=== PATIENT | female | born 1975 | race African-American/Black ===

== ENCOUNTER 2016-07-20 11:06 | Observation (INO) | payer BC ==
--- NOTE | 2016-07-20 12:24 | PDOC ---
History of Present Illness - General Chief Complaint: Lightheaded Stated Complaint: DIZZINESS Time Seen by Provider: 07/20/16 12:05 History Source: Patient Exam Limitations: No Limitations - History of Present Illness Initial Comments: 07/20/16 12:19 41y F no known pmhx presents with 2 episodes of lightheadedness lasting for several seconds at a time. The pt states she was at work onthe computer when she suddenly felt lightheaded, it lasted for a few seconds, resolved and came back for another few seconds. The pt has been asypmtomatic since then. The pt did note some palpitations during the episode, but thinks it might be because she got anxious she was feeling this way. The pt denies any cp, sob, n/v, vision changes, numbness/tingling/weakness, dysuria, frequency, diarrhea, melena , bpr. The pt states she has had this before and went to the ED in [place] and was told she had a 'vitamine deficiency'. The pt is recently from [place] and does not have a PMD in [place]. LMP last week that was normal and not particularly heavy Past History - Past Medical History Allergies/Adverse Reactions: Allergies Allergy/AdvReac Type Severity Reaction Status Date / Time No Known Allergies Allergy Verified 07/20/16 11:16 Home Medications: Ambulatory Orders NK [No Known Home Medication] 07/20/16 Other medical history: denies - Psycho/Social/Smoking Cessation Hx Suicidal Ideation: No Smoking History: Never smoked Information on smoking cessation initiated: No Hx Alcohol Use: No Drug/Substance Use Hx: No Substance Use Type: None Review of Systems - Review of Systems Able to Perform ROS?: Yes Comments:: 07/20/16 12:22 Constitutional - no reported Fever, Chills, weakness, HEENT: no reported vision changes, sore throat Respiratory: no reported cough, sob, hemoptysis Cardiac: +light headedness, no reported chest pain, palpitations, leg swelling Abd/GI: no reported abd pain, nausea, vomiting, blood per rectum, melena, diarrhea : no reported dysuria, frequency, discharge Musculskelatal - no reported back pain, joint swelling skin - no reported bruising, erythema, rash neurological: no reported headache, numbness, focal weakness, tingling, ataxia, weakness hematologic: no reported anemia, easy bruising, easy bleeding *Physical Exam - Vital Signs Last Vital Signs Temp Pulse Resp BP Pulse Ox 98.1 F 91 H 19 128/70 100 07/20/16 11:14 07/20/16 11:14 07/20/16 11:14 07/20/16 11:14 07/20/16 11:14 - Physical Exam Comments: 07/20/16 12:22 GENERAL: The patient is awake, alert, and fully oriented, Nontoxic - in no acute distress. HEAD: Normocephalic, atraumatic. EYES: extraocular movements intact, sclera anicteric, conjunctiva clear. ENT: Normal voice, Moist mucous membranes. NECK: Normal range of motion, supple LUNGS: Breath sounds equal, clear to auscultation bilaterally. No wheezes, no rhonchi, no rales. HEART: Regular rate and rhythm, normal S1 and S2 without murmur, rub or gallop. ABDOMEN: Soft, nontender, normoactive bowel sounds. No guarding, no rebound. . No CVA tenderness EXTREMITIES: Normal range of motion, no edema. No clubbing or cyanosis. No cords, erythema, or tenderness. NEUROLOGICAL: No facial assymetry, Normal speech, normal gait PSYCH: Normal mood, normal affect. SKIN: Warm, Dry, normal turgor, Heart Score/ECG Review - ECG Impressions Comment:: 07/20/16 17:10 Twelve-lead EKG was performed and reviewed by me. There is normal sinus rhythm with a normal rate. Rate of 91 The axis is normal. The intervals are normal. There is normal R wave progression There are no ST or T wave abnormalities. Impression: Normal twelve-lead EKG ED Treatment Course - LABORATORY CBC & Chemistry Diagram: 07/20/16 13:29 07/20/16 13:28 Medical Decision Making - Medical Decision Making 07/20/16 12:19 41y F presenting presenting with an episode of lightheadedness this morning while she was at work with no other complaints. The patient's exam is unremarkable. Her her vital signs are normal. We'll check basic blood work to rule out anemia, metabolic derangements, EKG to rule out arrhythmia, UA to rule out . The patient the patient is currently asymptomatic 07/20/16 17:09 pts blood work noted for anemia to 5.1 pt was written for 2u PRBC guaiac negative pt will be placed in observation for further evaluation of her anemia. case dw LOADER Oni agree with admission under Dr. Mcgarry service. Case discussed in detail with admitting physician including history, physical exam and ancillary studies. Admitting physician has assumed care for the patient, will follow all pending diagnostics and will complete the evaluation and treatment. *DC/Admit/Observation/Transfer Diagnosis at time of Disposition: Anemia Qualifiers: Anemia type: unspecified type Qualified Code(s): D64.9 - Anemia, unspecified - Discharge Dispostion Admit: Yes
[2016-07-20 13:42] LABS: EOSINOPHIL 0.3 % (0-4.5); MCHC 27.1 g/dl (32.0-36.0); MEAN PLT VOLUME 7.3 fl (7.5-11.1); NEUTROPHILS 63.1 % (42.8-82.8); PLATELET COUNT 554 K/MM3 (134-434); RDW 21.6 % (11.6-15.6); WHITE BLOOD COUNT 5.8 K/mm3 (4.0-10.0)
[2016-07-20 13:52] LABS: MCH 15.7 pg (25.7-33.7)
[2016-07-20 13:54] LABS: URINE APPEARANCE CLEAR; URINE BILIRUBIN NEGATIVE (NEGATIVE); URINE COLOR STRAW; URINE GLUCOSE (UA) NEGATIVE (NEGATIVE); URINE KETONE NEGATIVE (NEGATIVE); URINE NITRITE NEGATIVE (NEGATIVE); URINE PROTEIN NEGATIVE (NEGATIVE); URINE UROBILINOGEN NEGATIVE E.U./dl (0.2-1.0)
[2016-07-20 13:58] LABS: URINE BLOOD 2+ (NEGATIVE); URINE LEUK ESTERASE 1+ (NEGATIVE)
[2016-07-20 13:59] LABS: URINE MUCUS RARE; URINE RBC 11 /hpf (0-3); URINE WBC 14 /hpf (3-5)
[2016-07-20 14:16] LABS: ALBUMIN 3.4 g/dl (3.4-5.0); ALK PHOS 97 U/L (45-117); ANION GAP 8 (8-16); BILIRUBIN,TOTAL 0.3 mg/dL (0.2-1.0); CALCIUM 8.6 mg/dL (8.5-10.1); CO2 25 mmol/L (21-32); CREATININE 0.6 mg/dL (0.55-1.02); GLUCOSE,RANDOM 85 mg/dL (74-106); SGOT/AST 17 U/L (15-37); SGPT/ALT 18 U/L (12-78); TOT PROT 7.8 g/dl (6.4-8.2)
--- NOTE | 2016-07-20 14:17 | EKG ---
Test Reason : Blood Pressure : / mmHG Vent. Rate : 091 BPM Atrial Rate : 091 BPM P-R Int : 186 ms QRS Dur : 082 ms QT Int : 374 ms P-R-T Axes : 059 032 042 degrees QTc Int : 460 ms NORMAL SINUS RHYTHM NONSPECIFIC ST AND T WAVE ABNORMALITY NO PREVIOUS ECGS AVAILABLE Confirmed by CYNTHIA KILPATRICK MD ([id number]) on 07/20/2016 2:17:15 PM Referred By: Confirmed By:CYNTHIA KILPATRICK MD
--- NOTE | 2016-07-20 17:11 | PN ---
Teaching Attending Note Name of Resident: Kurt Gabriel ATTENDING PHYSICIAN STATEMENT I saw and evaluated the patient. I reviewed the resident's note and discussed the case with the resident. I agree with the resident's findings and plan as documented. Patient is c/o being light headed , shortness of breath on exertion. Vital Signs Temperature 98.1 F 07/20/16 11:14 Pulse Rate 91 H 07/20/16 11:14 Respiratory Rate 19 07/20/16 11:14 Blood Pressure 128/70 07/20/16 11:14 O2 Sat by Pulse Oximetry (%) 100 07/20/16 11:14 CBCD WBC 5.8 K/mm3 (4.0-10.0) 07/20/16 13:29 RBC 3.25 M/mm3 (3.60-5.2) L 07/20/16 13:29 Hgb 5.1 GM/dL (10.7-15.3) L* 07/20/16 13:29 Hct 18.9 % (32.4-45.2) L 07/20/16 13:29 MCV 58.0 fl (80-96) L 07/20/16 13:29 MCHC 27.1 g/dl (32.0-36.0) L 07/20/16 13:29 RDW 21.6 % (11.6-15.6) H 07/20/16 13:29 Plt Count 554 K/MM3 (134-434) H 07/20/16 13:29 MPV 7.3 fl (7.5-11.1) L 07/20/16 13:29 CMP Sodium 140 mmol/L (136-145) 07/20/16 13:28 Potassium 4.7 mmol/L (3.5-5.1) 07/20/16 13:28 Chloride 107 mmol/L (98-107) 07/20/16 13:28 Carbon Dioxide 25 mmol/L (21-32) 07/20/16 13:28 Anion Gap 8 (8-16) 07/20/16 13:28 BUN 10 mg/dL (7-18) 07/20/16 13:28 Creatinine 0.6 mg/dL (0.55-1.02) 07/20/16 13:28 Creat Clearance w eGFR > 60 (>60) 07/20/16 13:28 Random Glucose 85 mg/dL (74-106) 07/20/16 13:28 Calcium 8.6 mg/dL (8.5-10.1) 07/20/16 13:28 Total Bilirubin 0.3 mg/dL (0.2-1.0) 07/20/16 13:28 AST 17 U/L (15-37) 07/20/16 13:28 ALT 18 U/L (12-78) 07/20/16 13:28 Alkaline Phosphatase 97 U/L (45-117) 07/20/16 13:28 Total Protein 7.8 g/dl (6.4-8.2) 07/20/16 13:28 Albumin 3.4 g/dl (3.4-5.0) 07/20/16 13:28 Home Medications Medication Instructions Recorded NK [No Known Home Medication] 07/20/16 GENERAL: Awake, alert, and fully oriented, in no acute distress. HEENt:round and reactive to light, extraocular movements intact, sclera anicteric, +conjunctival pallor EARS, NOSE, THROAT: Moist mucous membranes. NECK: Normal range of motion, supple without JVD LUNGS: Breath sounds equal, clear to auscultation bilaterally. No wheezes, and no crackles. No accessory muscle use. HEART: Regular rate and rhythm, normal S1 and S2 positive , JEAN-PIERRE 3/6 ABDOMEN: Soft, nontender, not distended, normoactive bowel sounds, no guarding, no rebound RECTAL: per ED.negative hemo-occult MUSCULOSKELETAL: Normal range of motion at all joints. No CVA tenderness. EXTREMITIES: warm, well-perfused. No peripheral edema. NEUROLOGICAL: Cranial nerves II-XII intact. Normal speech. PSYCHIATRIC: Cooperative. Good eye contact. Appropriate mood and affect. SKIN: Warm, dry ASSESSMENT AND PLAN: Patient is a 41F presented to the hospital with lightheadedness and palpitations found to have anemia of Hb of 5.1 # Acute symptomatic Microcytic anemia with hem-occult negative , type and cross for 2 units and transfuse Iron panel studies , send B12 and folate levels, TSH level Hem consult ;GI evaluation as outpatient for possible endoscopy/colonoscopy [facility]ER evaluation as outpatient to establish care and evaluation of menses #Asymptomatic UTI no need for any treatment DVT Px :SCDs ,anticoag is contraindicated due to low hemoglobin
--- NOTE | 2016-07-20 17:31 | HP ---
CHIEF COMPLAINT: "I was lightheaded" PCP: none HISTORY OF PRESENT ILLNESS: 41F Denies PMHx presents to the ED form work for 2 episodes of lightheadedness lasting a few seconds at a time. The patient states she was at work sitting down when she started to get lightheaded and had palpitations. She states this lasted a few seconds and then she david fine a few minutes later she had another epiosde which was exactly the same and it also lasted a few seconds. This prompted her to come to the emergency room for evaluation. Upon arrival to the ED she was noted to have a Hb of 5.1. She states she has a history of anemia since she was a little kid. While she was about 20 years ago she had a blood transfusion where she received "2 pints". When she had that transfusion she said she was admitted to the hospital, transfused and discharged the same day with iron pills which she has not taken in many years. She has never been symptomatic until today. This morning she states she felt very tired but denies any decline in her exercise tolerance. She states She gets her menstrual cycles regularly and recently completed her cycle last week which was not very heavy. The patient is from [place] and recently was transferred here for work. 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 In [place] she states she was tole she has some kind of "vitamin deficiency". She currently denies any symptoms and feels fine. She denies nausea vomiting fevers chills chest pain or shortness of breath. she denies hematuria or dysuria. She denies GI bleeding or seeing blood in her stools. She has not established care with a primary care doctor here in [place]. ER course was notable for: (1)Labs (2)EKG (3)Transfusion Recent Travel:Denies PAST MEDICAL HISTORY:Anemia PAST SURGICAL HISTORY:Hernia repair at [age] years old Social History: Smoking:Denies Alcohol:Denies Drugs: Used to smoke marijuana and quit 8 years ago Family History:Father of a heart attack in his 60's mother is alive with a history of HTN and DM. Denies family history of cancer Allergies No Known Allergies Allergy (Verified 07/20/16 11:16) HOME MEDICATIONS: Home Medications Medication Instructions Recorded NK [No Known Home Medication] 07/20/16 REVIEW OF SYSTEMS CONSTITUTIONAL: Absent: fever, chills, diaphoresis, generalized weakness, malaise, loss of appetite, weight change HEENT: Absent: rhinorrhea, nasal congestion, throat pain, throat swelling, difficulty swallowing, mouth swelling, ear pain, eye pain, visual changes CARDIOVASCULAR: Absent: chest pain, syncope, irregular heart rate, peripheral edema Present: palpitations, lightheadedness, Tired for 1 day RESPIRATORY: Absent: cough, shortness of breath, dyspnea with exertion, orthopnea, wheezing, stridor, hemoptysis GASTROINTESTINAL: Absent: abdominal pain, abdominal distension, nausea, vomiting, diarrhea, constipation, melena, hematochezia GENITOURINARY: Absent: dysuria, frequency, urgency, hesitancy, hematuria, flank pain, genital pain MUSCULOSKELETAL: Absent: myalgia, arthralgia, joint swelling, back pain, neck pain SKIN: Absent: rash, itching, pallor HEMATOLOGIC/IMMUNOLOGIC: Absent: easy bleeding, easy bruising, lymphadenopathy, frequent infections ENDOCRINE: Absent: unexplained weight gain, unexplained weight loss, heat intolerance, cold intolerance NEUROLOGIC: Absent: headache, focal weakness or paresthesias, dizziness, unsteady gait, seizure, mental status changes, bladder or bowel incontinence PSYCHIATRIC: Absent: anxiety, depression, suicidal or homicidal ideation, hallucinations. PHYSICAL EXAMINATION Vital Signs - 24 hr 07/20/16 11:14 Temperature 98.1 F Pulse Rate 91 H Respiratory 19 Rate Blood Pressure 128/70 O2 Sat by Pulse 100 Oximetry (%) GENERAL: Awake, alert, and fully oriented, in no acute distress. HEAD: Normal with no signs of trauma. EYES: Pupils equal, round and reactive to light, extraocular movements intact, sclera anicteric, +conjunctival pallor EARS, NOSE, THROAT: Moist mucous membranes. NECK: Normal range of motion, supple without JVD LUNGS: Breath sounds equal, clear to auscultation bilaterally. No wheezes, and no crackles. No accessory muscle use. HEART: Regular rate and rhythm, normal S1 and S2 3/6 systolic murmur best heard at the left upper sternal border ABDOMEN: Soft, nontender, not distended, normoactive bowel sounds, no guarding, no rebound RECTAL: patient refused as Dr. Arriaga already did a rectal and there was yellow stool on his glove MUSCULOSKELETAL: Normal range of motion at all joints. No CVA tenderness. UPPER EXTREMITIES: warm, well-perfused. No peripheral edema. LOWER EXTREMITIES: warm, well-perfused. No calf tenderness. No peripheral edema. NEUROLOGICAL: Cranial nerves II-XII intact. Normal speech. PSYCHIATRIC: Cooperative. Good eye contact. Appropriate mood and affect. SKIN: Warm, dry Laboratory Results - last 24 hr 07/20/16 07/20/16 07/20/16 13:28 13:29 13:39 WBC 5.8 RBC 3.25 L Hgb 5.1 L* Hct 18.9 L MCV 58.0 L MCHC 27.1 L RDW 21.6 H Plt Count 554 H MPV 7.3 L Neutrophils % 63.1 Lymphocytes % 28.3 Monocytes % 7.3 Eosinophils % 0.3 Basophils % 1.0 Sodium 140 Potassium 4.7 Chloride 107 Carbon Dioxide 25 Anion Gap 8 BUN 10 Creatinine 0.6 Creat Clearance w eGFR > 60 Random Glucose 85 Calcium 8.6 Total Bilirubin 0.3 AST 17 ALT 18 Alkaline Phosphatase 97 Total Protein 7.8 Albumin 3.4 Urine Color Straw Urine Appearance Clear Urine pH 8.0 Ur Specific [place] 1.013 Urine Protein Negative Urine Glucose (UA) Negative Urine Ketones Negative Urine Blood 2+ H Urine Nitrite Negative Urine Bilirubin Negative Urine Urobilinogen Negative Ur Leukocyte Esterase 1+ H Urine RBC 11 Urine WBC 14 Ur Epithelial Cells Few Urine Mucus Rare Urine HCG, Qual Negative Stool Occult Blood Blood Type Antibody Screen Crossmatch 07/20/16 07/20/16 15:14 15:35 WBC RBC Hgb Hct MCV MCHC RDW Plt Count MPV Neutrophils % Lymphocytes % Monocytes % Eosinophils % Basophils % Sodium Potassium Chloride Carbon Dioxide Anion Gap BUN Creatinine Creat Clearance w eGFR Random Glucose Calcium Total Bilirubin AST ALT Alkaline Phosphatase Total Protein Albumin Urine Color Urine Appearance Urine pH Ur Specific [place] Urine Protein Urine Glucose (UA) Urine Ketones Urine Blood Urine Nitrite Urine Bilirubin Urine Urobilinogen Ur Leukocyte Esterase Urine RBC Urine WBC Ur Epithelial Cells Urine Mucus Urine HCG, Qual Stool Occult Blood Negative Blood Type AB POSITIVE Antibody Screen Negative Crossmatch See Detail EKG: NSR @ 91 ASSESSMENT/PLAN: 41F presented to the hospital with lightheadedness and palpitations found to have anemia with a Hb of 5.1 symptomatic Microcytic anemia:acute on chronic. stool for occult blood negative Place on observation type and cross 2 units PRBCs transfuse 2 units PRBCs Send Iron studies send B12 and folate levels TFTs Hematology consult-await recommendations for possible IV Iron vs Oral iron therapy Will need GI evaluation as outpatient for possible endoscopy [employer] evaluation as outpatient to establish care and evaluation of menses Systolic Murmur: Flow/innocent murmur likely from turbulent blood flow due to anemia observe Asymptomatic pyuria: 1+ LE and 14 WBCs asymptomatic does not need treatment at this time FEN: No IVF No electrolyte abnormalities regular diet PPx: SCDs/No chemical PPx as she is severely anemia and is an observation patient- early ambulation no GI PPx needed no PT consult needed Case discussed with Dr. Coleman Visit type - Emergency Visit Emergency Visit: Yes ED Registration Date: 07/20/16 Care time: The patient presented to the Emergency Department on the above date and was hospitalized for further evaluation of their emergent condition. - New Patient This patient is new to me today: Yes Date on this admission: 07/20/16 - Critical Care Critical Care patient: No
[2016-07-20 17:37] VITALS: BMI 29.8
[2016-07-20 18:50] LABS: ANISOCYTOSIS 3+; HYPOCHROMIA 3+; MICROCYTOSIS 3+; PLATELET ESTIMATE INCREASED (NORMAL)
[2016-07-20] MEDS ORDERED: PT OWN MED DRAWER 7, Y5N ONE (20:27)
--- NOTE | 2016-07-20 22:39 | CONSULT ---
Consult - text type - Consultation Consultation Note: Patient seen and examined 1F Denies PMHx comes for 2 episodes of lightheadedness lasting a few seconds at a time. The patient states she was at work sitting down when she started to get lightheaded and had palpitations. She states this lasted a few seconds and then she david fine a few minutes later she had another epiosde which was exactly the same and it also lasted a few seconds. This prompted her to come to the emergency room for evaluation. She denies nausea vomiting fevers chills chest pain or shortness of breath. she denies hematuria or dysuria. She denies GI bleeding she reports regular menstrual cycles PAST MEDICAL HISTORY:Anemia PAST SURGICAL HISTORY:Hernia repair at [age] years old Social History: Smoking:Denies Alcohol:Denies Drugs: Used to smoke marijuana and quit 8 years ago Family History:Father of a heart attack in his 60's mother is alive with a history of HTN and DM. Denies family history of cancer Allergies No Known Allergies Allergy (Verified 07/20/16 11:16) HOME MEDICATIONS: Home Medications Medication Instructions Recorded NK [No Known Home Medication] 07/20/16 PHYSICAL EXAMINATION Vital Signs - 24 hr 07/20/16 11:14 Temperature 98.1 F Pulse Rate 91 H Respiratory 19 Rate Blood Pressure 128/70 O2 Sat by Pulse 100 Oximetry (%) A/P 41 y/o patient with dizziness, near syncope. Noted to have microcytic anemia with Hgb 5. Getting PRBCs IROn studies pending h/o prior blood transfusion during PAtient reports regular menstrual cycles 5-6 days Suspect iron deficiency anemia due to menstrual losses Will need FLATCAR WHACKER/GI f/u as out patient Check stool occult Reports constipation with PO iron Will need to arrange f/u with heme team at [facility] for considering iv iron, as patient lives in the [place] [address]
[2016-07-21 06:03] VITALS: BP 120/70; PULSE 76
[2016-07-21 08:32] LABS: MCHC 31.1 g/dl (32.0-36.0); MEAN CELL VOLUME 64.4 fl (80-96); MEAN PLT VOLUME 8.3 fl (7.5-11.1); PLATELET COUNT 511 K/MM3 (134-434); RDW 28.3 % (11.6-15.6); WHITE BLOOD COUNT 5.1 K/mm3 (4.0-10.0)
[2016-07-21 08:46] LABS: INR 1.14 (0.82-1.09); PROTHROMBIN TIME (PATIENT) 12.6 SEC (9.98-11.88)
[2016-07-21 08:49] LABS: ACTIVATED PTT 32.2 SECONDS (26.9-34.4)
[2016-07-21 09:47] LABS: FERRITIN 3.741 ng/ml (6.9-282.5); THYROID STIMULATING HORMONE 1.44 uIU/ml (0.358-3.74)
[2016-07-21] MEDS ORDERED: FERROUS SO4/VIT C/FA 1 EACH TABLET.ER PO SCH (14:45)
--- NOTE | 2016-07-21 14:45 | PN ---
Teaching Attending Note Name of Resident: Kurt Gabriel ATTENDING PHYSICIAN STATEMENT I saw and evaluated the patient. I reviewed the resident's note and discussed the case with the resident. I agree with the resident's findings and plan as documented. Patient is comfortable with no acute distress. No dizziness, no shortness of breath. Vital Signs Temperature 98 F 07/21/16 06:00 Pulse Rate 76 07/21/16 06:00 Respiratory Rate 20 07/21/16 08:00 Blood Pressure 120/70 07/21/16 06:00 O2 Sat by Pulse Oximetry (%) 100 07/21/16 08:00 CBCD WBC 5.1 K/mm3 (4.0-10.0) 07/21/16 07:15 RBC 4.03 M/mm3 (3.60-5.2) D 07/21/16 07:15 Hgb 8.1 GM/dL (10.7-15.3) L D 07/21/16 07:15 Hct 26.0 % (32.4-45.2) L D 07/21/16 07:15 MCV 64.4 fl (80-96) L 07/21/16 07:15 MCHC 31.1 g/dl (32.0-36.0) L 07/21/16 07:15 RDW 28.3 % (11.6-15.6) H 07/21/16 07:15 Plt Count 511 K/MM3 (134-434) H 07/21/16 07:15 MPV 8.3 fl (7.5-11.1) D 07/21/16 07:15 CMP Sodium 140 mmol/L (136-145) 07/20/16 13:28 Potassium 4.7 mmol/L (3.5-5.1) 07/20/16 13:28 Chloride 107 mmol/L (98-107) 07/20/16 13:28 Carbon Dioxide 25 mmol/L (21-32) 07/20/16 13:28 Anion Gap 8 (8-16) 07/20/16 13:28 BUN 10 mg/dL (7-18) 07/20/16 13:28 Creatinine 0.6 mg/dL (0.55-1.02) 07/20/16 13:28 Creat Clearance w eGFR > 60 (>60) 04/12/17 13:28 Random Glucose 85 mg/dL (74-106) 07/20/16 13:28 Calcium 8.6 mg/dL (8.5-10.1) 07/20/16 13:28 Total Bilirubin 0.3 mg/dL (0.2-1.0) 07/20/16 13:28 AST 17 U/L (15-37) 07/20/16 13:28 ALT 18 U/L (12-78) 07/20/16 13:28 Alkaline Phosphatase 97 U/L (45-117) 07/20/16 13:28 Total Protein 7.8 g/dl (6.4-8.2) 07/20/16 13:28 Albumin 3.4 g/dl (3.4-5.0) 07/20/16 13:28 Current Medications Generic Name Dose Route Start Last Admin Trade Name Freq PRN Reason Stop Dose Admin Folic Acid/Iron 1 each 07/21/16 14:45 Folitab 500 Caplet - PO DAILY ATA Home Medications Medication Instructions Recorded Ferrous Sulfate/Vit C/FA [Folitab 1 each PO DAILY #20 tab 07/21/16 500 Caplet -] ASSESSMENT AND PLAN: Patient is a 41F presented to the hospital with lightheadedness and palpitations found to have anemia of Hb of 5.1 # Acute symptomatic Microcytic anemia with hem-occult negative , s/p 2 units of blood transfusion, patient is comfortable at this time. ferritin is very low 3.7 , Hemoglobin post transfusion is 8 today , will send her out with Chromagen po daily. Needs to follow with Bed Maker ;GI evaluation as outpatient for possible endoscopy/colonoscopy BOOT TURNER evaluation as outpatient to establish care and evaluation of menses #Asymptomatic UTI no need for any treatment # JEAN-PIERRE 3/6 resolved post transfusion ,was flow murmur due to severe anemia will discharge the patient home. with follow visits.
--- NOTE | 2016-07-21 14:45 | DS ---
Physical Exam: SUBJECTIVE: Patient seen and examined OBJECTIVE: Vital Signs Period Temp Pulse Resp BP Sys/Salcedo Pulse Ox Last 24 Hr 97.9 F-98.2 F 76-96 20-20 116-128/63-70 100-100 PHYSICAL EXAM GENERAL: Awake, alert, and fully oriented, in no acute distress. HEAD: Normal with no signs of trauma. EYES: Pupils equal, round and reactive to light, extraocular movements intact, sclera anicteric, +conjunctival pallor but improved EARS, NOSE, THROAT: Moist mucous membranes. NECK: Normal range of motion, supple without JVD LUNGS: Breath sounds equal, clear to auscultation bilaterally. No wheezes, and no crackles. No accessory muscle use. HEART: Regular rate and rhythm, normal S1 and S2 no murmur heard today resolved likely after blood transfusion ABDOMEN: Soft, nontender, not distended, normoactive bowel sounds, no guarding, no rebound RECTAL: patient refused as Dr. Arriaga already did a rectal and there was yellow stool on his glove MUSCULOSKELETAL: Normal range of motion at all joints. No CVA tenderness. UPPER EXTREMITIES: warm, well-perfused. No peripheral edema. LOWER EXTREMITIES: warm, well-perfused. No calf tenderness. No peripheral edema. NEUROLOGICAL: Cranial nerves II-XII intact. Normal speech. PSYCHIATRIC: Cooperative. Good eye contact. Appropriate mood and affect. SKIN: Warm, dry LABS Laboratory Results - last 24 hr 07/20/16 07/20/16 07/21/16 15:35 17:00 06:00 WBC RBC Hgb Hct MCV MCHC RDW Plt Count MPV INR 1.14 PTT (Actin FS) 32.2 Ferritin Vitamin B12 Serum Folate TSH Stool Occult Blood Negative Blood Type AB POSITIVE 07/21/16 07/21/16 07/21/16 07:15 08:45 08:45 WBC 5.1 RBC 4.03 D Hgb 8.1 L D Hct 26.0 L D MCV 64.4 L MCHC 31.1 L RDW 28.3 H Plt Count 511 H MPV 8.3 D INR PTT (Actin FS) Ferritin 3.741 L Vitamin B12 275 Serum Folate 15 TSH 1.44 Stool Occult Blood Blood Type HOSPITAL COURSE: Date of Admission:07/20/16 Date of Discharge: 07/21/16 41F no PMH except anemia since childhood presented to the ED with 2 episodes of palpitations and lightheadedness each lasting a few seconds per patient. She was found to have severe microcytic anemia Hb 5.1. She denies heavy menstrual cycles. Seen by hematology and they recommended she follow up with hematology at [facility] as it is closer to her house for IV iron transfusions. Patient received 2 units of PRBCs and Hb now 8.1. Symptoms resolved. Patient asking to go home. Stable for discharge She had a flow murmur from anemia which resolved after transfusion Minutes to complete discharge: 45 Discharge Summary Reason For Visit: ANEMIA Current Active Problems Anemia (Acute) Microcytic anemia (Acute) Condition: Stable - Instructions Diet, Activity, Other Instructions: if you have these symptoms again go back to the nearest emergency room you need to establish care with a primary care doctor you need to follow up with a transplant rn as you may need IV Iron take the chromagen as prescribed call your insurance company and find out which doctors in your area accept your insurance you can also try [facility] at [phone] if no one accepts your insurance this is a free clinic call the office at [phone] to make an appointment for me Dr. Kurt Gabriel you need to see a metal tile lather to evaluate your mestrual cycle Referrals: Zia Sanchez MD [Staff Physician] - 1 Week (primary care ) Josué Palacios MD [Staff Physician] - 1 Week (gynecology) Vicki Marin MD [Staff Physician] - 1 Week (Gynecology ) Mignon Alvarenga MD [Staff Physician] - 1 Week (hematology ) Disposition: HOME - Home Medications Comprehensive Discharge Medication List: Ambulatory Orders Ferrous Sulfate/Vit C/FA [Folitab 500 Caplet -] 1 each PO DAILY #20 tab This patient is new to me today: No Emergency Visit: Yes ED Registration Date: 07/20/16 Care time: The patient presented to the Emergency Department on the above date and was hospitalized for further evaluation of their emergent condition. Critical Care patient: No - Discharge Referral Referred to [facility] Yes Physician Referral: Zia Sprague MD ([facility])
[2016-07-21 15:12] VITALS: TEMP 98.6
[2016-07-22 06:07] LABS: SERUM IRON 127 ug/dL (27-159); TOTAL IRON BINDING CAPACITY 388 ug/dL (250-450); UIBC 261 ug/dL (131-425)
[2016-07-22 06:07] LABS: FREE T3 2.7 pg/mL (2.0-4.4)
== END 2016-07-21 15:16 | disposition home or self-care (01) ==
LOC: JER 11:06 → JERBED 15:22 → J8W 17:25
PROVIDERS: ADMIT Internal Medicine; ATTEND Internal Medicine
PROC: 30233N1 Transfusion of Nonautologous Red Blood Cells into Peripheral Vein, Percutaneous Approach (ICD-10-PCS; principal; 2016-07-20)
DX: D50.8 Other iron deficiency anemias (principal); N39.0 Urinary tract infection, site not specified
CPT/HCPCS: 36415; 36430; 80053; 81003; 81015; 82272; 82607; 82728; 82746; 83540; 83550; 84439; 84443; 84466; 84481; 84703; 85025; 85027; 85610; 85730; 86850; 86900; 86901; 86922; 93005; 93010; 99285-25; G0378; P9038; P9058